=== PATIENT | male | born 1965 | race Caucasian/White ===

== ENCOUNTER 2022-07-09 21:23 | Observation (INO) | payer OTHER ==
[~2022-07-09] VITALS: Ht 177.8 cm; Wt 79.0 kg
--- NOTE | 2022-07-09 21:30 | NUR ---
PT AMBULATED TO ER BED 10 FOR TRIAGE AT THIS TIME WITH AN EVEN AND STEADY GAIT.
--- NOTE | 2022-07-09 22:59 | NUR ---
PROVIDER AT BEDSIDE SUTURING
--- NOTE | 2022-07-10 00:05 | NUR ---
RN CLEANSED THE WOUNDS ON THE RIGHT SIDE OF THE BOY ARM AND LEG WITH PROVIDER STEPPED OUT FROM SUTURING.SURE CLEANSES THEN CHLORAHEXIDINE SCRUB ON THE OQUENDO, FLUSHED OUT THE PUNCTURE SITES WITH STERILE SALINE FLUSHES, THEN BETADINE AND WILL DRESS WOUNDS
--- NOTE | 2022-07-10 01:30 | NUR ---
WASHED THE LEFT ARM WITH SURE CLEANSE,CHLORAHEXIDINE AND BETADINE AND THEN APPLIED BACITRACIN, ADAPTIC AND STERILE GAUZE TO THE WOUNDS AND WRAPPED WITH KELIX AND THEN A LOOSE YAJAIRA WRAP. PT TOLERATED WELL
--- NOTE | 2022-07-10 02:37 | NUR ---
CLEAN RLE WITH SURE CLEANSE,CHLORAHEXIDINE, AND BETADINE. APPLIED BACITRACIN,ADAPTIC, AND STERILE GAUZE THEN YAJAIRA WRAP LOOSELY.
--- NOTE | 2022-07-10 03:00 | NUR ---
PROVIDER AT BEDSIDE SUTURING BITE WOUNDS ON THE RIGHT SIDE
--- NOTE | 2022-07-10 03:50 | NUR ---
RIGHT FOREARM DRESSED AND WRAPPED UP
[2022-07-10] MEDS ORDERED: AMOX/K CLAV875 M1 PO (04:22)
[2022-07-10] MEDS ORDERED: LORTAB 1010 MG PO ×2 (04:22→19:20)
--- NOTE | 2022-07-10 04:40 | NUR ---
PROVIDER DECIDED THAT HE REALLY WOULD LIKE TO ADMIT THE PATIENT AND HE AGGREED
--- NOTE | 2022-07-10 05:00 | NUR ---
PLACED ICE TO BILATERAL ARMS FOR 20MINS
[2022-07-10] MEDS ORDERED: PRAVASTATIN SOD20 MG PO (05:32)
[2022-07-10] MEDS ORDERED: NADOLOL20 MG PO (05:33)
[2022-07-10] MEDS ORDERED: AMBIEN5 MG PO (05:34)
--- NOTE | 2022-07-10 06:00 | NUR ---
APPLIED ICE TO BILATERAL ARMS FOR 20MINS
[2022-07-10 06:01] VITALS: BP 129/51
--- NOTE | 2022-07-10 06:10 | NUR ---
REPORT TO HANGING FLAGS DECORATOR
--- NOTE | 2022-07-10 06:20 | NUR ---
PT TRANSFERRED UP TO ROOM 265 BY STRETCH. REPORT TO RN. SENT PT CELL PHONE UP WITH THE PATIENT
--- NOTE | 2022-07-10 06:49 | NUR ---
PT ARRIVED FROM ED, AXO4 C/O NO PAIN AT THE MOMENT, CALL LIGHT WITHIN REACHED WILL CONT TO MONITOR
[2022-07-10 07:00] VITALS: BP 129/51
[2022-07-10 07:08] VITALS: BP 110/49
--- NOTE | 2022-07-10 07:35 | NUR ---
PT ARRIVED AT 0625, NO ASSESSMENT WAS DONE, WARPER FIXER IS AWARE
--- NOTE | 2022-07-10 08:06 | NUR ---
PT VITALS STABLE, PAIN MED GIVEN, STOMACH DISTENDED, WILL CONT TO MONITOR
[2022-07-10 08:33] LABS: BASO% 0.4 % (0-3); EOS% 0.4 % (0-8); HEMATOCRIT 36.9 % (39.0-50.0); HEMOGLOBIN 12.8 g/dl (14.0-18.0); IMMATURE GRANULOCYTES 0.1 % (0.0-5.0); LYMPH% 20.3 % (15-41); MEAN CELL VOLUME 96.1 fL CALC (80.0-100.0); MEAN CORPUSCULAR HGB 33.3 pG CALC (26.0-32.0); MEAN CORPUSCULAR HGB CONC 34.7 g/dL CAL (32.0-36.0); MONO% 9.2 % (2-13); NEUT# 5.06 thou/uL (1.82-7.42); NEUT% 69.6 % (42-76); RED BLOOD COUNT 3.84 mill/uL (4.70-6.10); RED CELL DISTRI WIDTH 12.5 % (11.5-15.5)
[2022-07-10 08:46] LABS: ALKALINE PHOSPHATASE 45 u/l (38-126); ANION GAP 13 (6-22 (CALC)); BILIRUBIN, TOTAL 1.7 mg/dL (0.2-1.3); BUN 7 mg/dL (9-20); BUN/CREATININE RATIO 12 (12-20 (CALC)); CARBON DIOXIDE 24 mmol/l (22-30); CHLORIDE 104 mmol/l (95-108); CREATININE 0.6 mg/dL (0.7-1.3); GFR FOR AFR.AMER. > 60 ML/MIN (>=60 (CALC)); GFR OTHER RACES > 60 ML/MIN (>=60 (CALC)); POTASSIUM 4.1 mmol/l (3.5-5.1); SGOT/AST 59 u/l (17-59); SODIUM 136 mmol/l (137-146); TOTAL PROTEIN 7.1 g/dL (6.3-8.2)
== END 2022-07-10 13:24 | disposition home or self-care (01) | DRG 605 ==
LOC: ED 21:23 → ED-I 07-10 04:12 → ED 07-10 04:42 → MS2 07-10 04:43
PROVIDERS: Internal Medicine; ADMIT Internal Medicine; ATTEND Internal Medicine
PROC: 0HQEXZZ Repair Left Lower Arm Skin, External Approach (ICD-10-PCS; principal; 2022-07-10)
DX: S41.152A Open bite of left upper arm, initial encounter (principal); S41.151A Open bite of right upper arm, initial encounter; S81.852A Open bite, left lower leg, initial encounter; S81.851A Open bite, right lower leg, initial encounter; I10 Essential (primary) hypertension; W54.0XXA Bitten by dog, initial encounter; Y92.009 Unspecified place in unspecified non-institutional (private) residence as the place of occurrence of the external cause